=== PATIENT | female | born 1955 | race Caucasian/White ===

== ENCOUNTER 2018-05-12 13:30 | Emergency (ER) | payer OTHER ==
--- NOTE | 2018-05-12 13:50 | PDOC ---
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 knee pain. Patient reports that she was getting off the couch on Tuesday night when she felt pain in her R. knee. Since that time, she has been unable to bend the limb and has had difficulty ambulating. The pain is exacerbated with movement and palpation. Patient has taken tylenol at home with no relief. Denies any recent trauma. No history of previous knee injury or surgery. Patient endorses normal sensation in the limb. She says her INR levels are checked every month and have been appropriate. No fevers, chills, rash, or immunocompromised status. 05/12/18 16:33 Past History - Past Medical History Allergies/Adverse Reactions: Allergies Allergy/AdvReac Type Severity Reaction Status Date / Time No Known Allergies Allergy Verified 05/12/18 13:42 Home Medications: Ambulatory Orders Ascorbic Acid [Vitamin C Oral Solution -] 500 mg PO DAILY 05/12/18 Citalopram Hydrobromide [Citalopram HBr] 20 mg PO DAILY 05/12/18 Cyanocobalamin (Vitamin B-12) [Vitamin B-12] 1,000 mcg PO DAILY 05/12/18 Furosemide [Lasix] 40 mg PO Q48H 05/12/18 Metoprolol Succinate [Toprol Xl] 25 mg PO DAILY 05/12/18 Multivit-Minerals/Folic Acid [Centrum Multigummies] 150 mcg PO DAILY 05/12/18 Potassium Chloride [K-Dur -] 20 meq PO Q48H 05/12/18 Ramipril 10 mg PO DAILY 05/12/18 Tramadol HCl [Ultram] 50 mg PO BID PRN #10 tablet MDD 2 05/12/18 Warfarin Sodium [Coumadin] 5 mg PO HS 05/12/18 Zolpidem Tartrate [Ambien] 10 mg PO HS 05/12/18 Review of Systems - Review of Systems Comments:: Constitutional: no fever, no chills Cardiovascular: no chest pain Respiratory: no shortness of breath Gastrointestinal: no abdominal pain, no nausea, no vomiting Musculoskeletal: + R. knee pain Skin: no rash, no itching Neurologic: no headache, no dizziness *Physical Exam - Physical Exam Comments: General: Awake, alert, and fully oriented, in no acute distress Head: no signs of trauma Eyes: EOMI, sclera anicteric ENT: Moist mucus membranes, Neck: Normal ROM, supple Lungs: Lungs clear, Normal breath sounds Cardio: Regular rhythm, S1 and S2 present Abdomen: Soft, nontender Extremities: Distal pulses present; R. knee with mild swelling and warmth; exquisitely tender to palpation on the medial aspect and movement; no rash or lesion SKIN: Warm, Dry, normal turgor Neurologic: Cranial nerves II through XII grossly intact. Normal speech ED Treatment Course - LABORATORY CBC & Chemistry Diagram: 05/12/18 15:55 05/12/18 15:55 Medical Decision Making - Medical Decision Making 62yo F with history of stroke in 2008 with no residual sequelae, mitral valve revision in 2008 on coumadin presenting with R. knee pain. -Labs: CBC, CMP, PT/INR, Uric Acid -Imaging of R. knee -Morphine 4mg 05/12/18 16:12 WBC 11.7, Uric acid 5.3 INR is supratherapeutic at 4.4 Arthrocentesis is contraindicated with elevated INR. 05/12/18 16:34 No acute pathology on radiographs. ESR is 12, Pending CRP 05/12/18 16:46 Could not get in contact with patient's PCP, Dr. Yi. Patient endorses appropriate analgesia. 05/12/18 17:53 CRP is 0.4 Instructed patient to rest, ice, and elevate the right leg. Prescription for pain will be given. Hold coumadin and Tuesday. Return on Tuesday to recheck INR and reassess right knee. Discussed case over the phone with orthopedist, Dr. Zeng, who agrees with plan. 05/12/18 18:18 *DC/Admit/Observation/Transfer Diagnosis at time of Disposition: Knee pain, acute Qualifiers: Laterality: right Qualified Code(s): M25.561 - Pain in right knee - Discharge Dispostion Disposition: HOME Condition at time of disposition: Stable - Prescriptions Prescriptions: Tramadol HCl [Ultram] 50 mg PO BID PRN #10 tablet MDD 2 PRN Reason: Severe Pain - Referrals Referrals: Danita Yi MD [Primary Care Provider] - - Patient Instructions Printed Discharge Instructions: DI for Knee Pain Additional Instructions: You came to the ED for knee pain. Your INR was found to be elevated at 4.33. Do not take coumadin and Tuesday. Return on Tuesday to recheck INR and reassess right knee. Rest, ice, and elevate the right leg. Prescription for pain sent to your pharmacy. Contact your doctor if your recovery is not progressing as expected or you develop complications such as increased pain, pain that is not controlled with medications youve been given, uncontrolled swelling or redness of the knee, weakness or numbness. If you think you have an emergency, call for medical help or go to the ED right away. - Post Discharge Activity
[2018-05-12 13:54] VITALS: BP 138/75; PULSE 76; TEMP 98.5; BMI 23.4
--- NOTE | 2018-05-12 14:23 | PDOC ---
Attending Attestation - Resident Resident Name: Crystal Simms - ED Attending Attestation I have performed the following: I have examined & evaluated the patient, The case was reviewed & discussed with the resident, I agree w/resident's findings & plan, Exceptions are as noted - HPI HPI: 05/12/18 15:22 62 yo F presenting to the ER with right knee pain Symptoms began 3 days ago after stepping off of the couch Since then, she has noted right knee pain which has progressively worsened She has also noted swelling she has pain with flexion of the knee No local erythema No other joint pain or swelling - Physicial Exam PE: 05/12/18 15:38 Pt is awake and alert A & O x 3 Right knee is : swollen Limited rom due to pain not warm no erythema lower extremity NON edematous No calf tenderness to palpation 2+ DP and PT Sensation in tact - Medical Decision Making 05/12/18 18:12 Laboratory Tests 05/12/18 05/12/18 05/12/18 15:55 15:55 15:55 WBC 11.7 H Hgb 16.4 H Hct 47.9 H Plt Count 273 ESR 12 INR 4.33 H* Uric Acid 5.3 Xray: no fracture or dislocation DD still includes hemarthrosis vs septic arthritis Pt improved with morphine Will contact Dr Zeng for consult Pt at this time does not want to stay in the hospital Can not do arthrocentesis at this time given INR 4.5 05/12/18 18:[address] Zeng He believes this presentation is due to hemarthrosis
[2018-05-12] MEDS ORDERED: morphine CARPU-JECT 4 MG/1 ML DISP.SYRIN IVPUSH ONE (14:31)
[2018-05-12] MEDS ORDERED: morphine SULFATE 4 MG/ML VIAL ONE (15:30)
[2018-05-12 16:02] LABS: BASO % 0.8 % (0-2.0); EOS % 1.6 % (0-4.5); HEMATOCRIT 47.9 % (32.4-45.2); HEMOGLOBIN 16.4 GM/dl (10.7-15.3); LYMPH % 28.1 % (8-40); MCH 31.6 pg (25.7-33.7); MCHC 34.2 g/dl (32.0-36.0); MEAN CELL VOLUME 92.4 fl (80-96); MONO % 3.5 % (3.8-10.2); PLATELET COUNT 273 K/MM3 (134-434); RBC 5.18 M/mm3 (3.60-5.2); RDW 13.3 % (11.6-15.6); WHITE BLOOD COUNT 11.7 K/mm3 (4.0-10.8)
[2018-05-12 16:19] LABS: ALBUMIN 3.9 g/dl (3.5-5.0); ALK PHOS 72 U/L (32-92); ANION GAP 5 MMOL/L (8-16); BILIRUBIN,TOTAL 0.4 mg/dl (0.2-1.0); BLOOD UREA NITROGEN 8 mg/dl (7-18); CALCIUM 9.3 mg/dl (8.4-10.2); CHLORIDE 100 mmol/L (98-107); CO2 30 mmol/L (22-28); GLUCOSE,RANDOM 74 mg/dl (74-106); SGOT/AST 22 U/L (10-42); SGPT/ALT 20 U/L (10-40); SODIUM 135 mmol/L (136-145); TOT PROT 7.3 g/dl (6.4-8.3); URIC ACID 5.3 mg/dl (2.6-7.2)
[2018-05-12 16:22] LABS: CREATININE < 0.6 mg/dl (0.6-1.3)
[2018-05-12 16:26] LABS: PROTHROMBIN TIME (PATIENT) 47.1 SEC (10.2-13.0)
[2018-05-12 16:27] LABS: INR 4.33 (0.82-1.09)
[2018-05-12 16:53] LABS: ERYTHROCYTE SEDIMENTATION RATE 12 mm/hr (0-30)
== END 2018-05-12 18:35 | disposition home or self-care (01) ==
LOC: FER 13:30
PROC: 3E033NZ Introduction of Analgesics, Hypnotics, Sedatives into Peripheral Vein, Percutaneous Approach (ICD-10-PCS; principal; 2018-05-12)
DX: M25.561 Pain in right knee (principal); Z86.73 Personal history of transient ischemic attack (TIA), and cerebral infarction without residual deficits; Z79.01 Long term (current) use of anticoagulants; Z95.2 Presence of prosthetic heart valve
CPT/HCPCS: 36415; 73564-TC-RT-FY; 80053; 84550; 85025; 85610; 85651; 86140; 96374; 99283-25